=== PATIENT | male | born 1990 | race Caucasian/White ===

== ENCOUNTER 2024-09-29 21:55 | Emergency (ER) | payer SELFPAY ==
[2024-09-29 21:57] VITALS: BP 132/86
[2024-09-29 22:02] VITALS: BP 140/82
[2024-09-29] MEDS: DUONEB 9 ML INH (22:07)
[2024-09-29] MEDS: DUONEB 3 ML INH ×2 (22:36→23:45)
[2024-09-29] MEDS: DELTASONE 50 MG PO (22:36)
[2024-09-29 22:47] LABS: COVID-19 Antigen Negative (Negative)
--- NOTE | 2024-09-29 23:45 | EDRN ---
Dr. Patrick re-assessed patient and ordered another duo-neb to be done
--- NOTE | 2024-09-30 00:17 | ED.GENMED ---
History of Present Illness
General
Chief Complaint: Breathing Problem
Source: patient
Exam Limitations: none
Time Seen by Provider: 09/29/24 22:05
Nursing documentation reviewed up to this point in time: agreed with
History of Present Illness
History of Present Illness:
Note:
CHIEF COMPLAINT(S)
Shortness of breath and wheezing
HISTORY OF PRESENT ILLNESS
The patient is a 34-year-old male presenting with a chief complaint of shortness of breath and wheezing. He reports that the sensation of breathlessness began gradually, described as feeling 'tighter and tighter.' He initially experienced these
symptoms in the morning, with a similar episode occurring approximately two years ago. The patient mentioned an absence of recent fevers. He expressed that his shortness of breath has progressively worsened with age but denied recent use of
steroids, nebulizers, or having any increased temperature.
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 He also mentioned having a recent 'runny nose' and describing himself as 'pretty
bad,' likely relating to upper respiratory symptoms. The patient smokes cigarettes.
PHYSICAL EXAM
-General moderate respiratory distress, afebrile
- Skin: Multiple tattoos present, without cyanosis.
- Cardiovascular: Pulses are equal on all extremities; no edema observed.
- Respiratory: Wheezing noted upon presentation.
PROBLEM LIST
Acute:
- Shortness of breath
- Wheezing
PLAN
The plan includes administering breathing treatments with bronchodilators and starting the patient on steroids. A chest X-ray is indicated, and tests for influenza and COVID-19 will be conducted to evaluate potential viral infections.
DIFFERENTIAL DIAGNOSIS
The Differential Diagnosis includes, in no particular order and is not limited to:
1. Asthma exacerbation
2. Chronic obstructive pulmonary disease (COPD)
3. Allergic reaction
4. Respiratory infection (viral or bacterial)
5. Occupational lung disease
6. Cardiogenic pulmonary edema
7. Anxiety-related hyperventilation
8. Bronchitis
9. Pulmonary embolism
10. Pneumonia
CARE-UPDATE
09/29/24 - 23:32
The patients chest exam appears normal, but they continue to experience respiratory tightness and wheezing. The patient admits to a history of smoking and acknowledges the need to quit, having previously attempted abstinence for a brief period.
Current treatment includes multiple doses of nebulized medication, which temporarily improved symptoms, although the patient still feels respiratory tightness. Steroid treatment has been initiated but requires additional time for full efficacy. Plan
includes administering another nebulization treatment to further assess and alleviate the patients symptoms and potentially improve respiratory function before discharge. The patient is agreeable with this plan.
CARE-UPDATE
09/30/24 - 00:27
Patient reports improvement post-nebulizer treatments, with chest x-ray confirming normal findings. Repeat lung examination shows clearer lung sounds and improved air movement, with a reduction to faint wheezing. Initiating albuterol inhaler and a
5-day prednisone regimen. Patient advised to find a primary care physician and received smoking cessation estate planning counselor. Discharge precautions discussed.
Disposition:
DIAGNOSIS
- Asthma exacerbation (ICD-10: J45.901)
SUMMARY OF ENCOUNTER
The patient, a 34-year-old male, presented to the emergency department with shortness of breath and wheezing. The onset of these symptoms was gradual, with a sensation of chest tightness worsening over time. The patient works in construction with
frequent exposure to dust and has a significant smoking history. Initial examination showed moderate respiratory distress and wheezing. Management included administering bronchodilators and initiating steroid therapy, with follow-up chest X-ray and
testing for influenza and COVID-19 to rule out viral infections. The patient demonstrated improvement following nebulizer treatments and the chest X-ray indicated normal findings, confirming an asthma exacerbation diagnosis.
DISPOSITION
Discharge
REASSESSMENT
Post-nebulizer treatment, the patient reported improved breathing. A chest X-ray confirmed normal findings, and a repeat lung examination noted clearer lung sounds with diminished wheezing.
PLAN
The management plan includes the initiation of an albuterol inhaler and a 5-day course of prednisone. The patient was advised to identify a primary care physician for ongoing management and received guidance on smoking cessation.
INDEPENDENT INTERPRETATION OF TESTS
My independent interpretation of the chest x-ray shows no abnormalities, confirming the absence of infections or other acute respiratory issues.
PATIENT EDUCATION AND COUNSELING
The patient was counseled on the importance of smoking cessation, the management of asthma, and advised on discharge precautions.
FOLLOW-UP INSTRUCTIONS
The patient was instructed to follow up with a primary care physician for continued management of asthma and further smoking cessation support.
MEDICATION RECONCILIATION
- Albuterol inhaler prescribed.
- Prednisone prescribed for 5 days.
SMOKING CESSATION COUNSELING
The patient smokes cigarettes. I counseled them on cessation, emphasizing the health risks including cancer, lung disease, and heart disease. I encouraged the use of nicotine patches or gum and suggested discussing additional prescription options
with a PCP. A quit date was recommended to aid in cessation efforts.
MEDICAL DECISION MAKING
Number and Complexity of Problems Addressed: Acute asthma exacerbation with primary concerns of shortness of breath and wheezing. Occupational exposure and smoking history considered.
Data: Diagnosis supported by clinical presentation and chest X-ray, guided therapeutic interventions, and recommended a follow-up plan.
Risk: The patients social determinants, including occupational dust exposure and smoking, influenced management decisions. Discharge was deemed appropriate given symptom improvement and patient estate planning counselor on follow-up with primary care for ongoing care.
Phy Exam
Physical Exam
Physical Exam:
.
Course
Orders/Labs/Results
Orders:
Orders
09/29/24 22:02
Ipratropium/Albuterol Sulfate [Duoneb] 9 ml INH R NOW STA
09/29/24 22:12
Ipratropium/Albuterol Sulfate [Duoneb] 3 ml INH R NOW STA
Prednisone [Deltasone] 50 mg PO NOW STA
09/29/24 22:13
CR Chest - 2 Views Urgent
Comment:
Reason For Exam: short of breath, wheezing 2 days
09/29/24 22:20
COVID-19 Antigen Urgent
Source: Nasal Swab
Influenza A+B Rapid Molecular Urgent
DELMIS Source: Nasal Swab
Specimen Description:
09/29/24 23:36
Ipratropium/Albuterol Sulfate [Duoneb] 3 ml .ROUTE .STK-MED ONE
Ipratropium/Albuterol Sulfate [Duoneb] 3 ml INH R NOW STA
Vital Signs
Initial and Last Documented VS:
Initial Vital Signs
Temp Pulse Resp BP Pulse Ox
97.8 F 115 26 132/86 90
09/29/24 21:57 09/29/24 21:57 09/29/24 21:57 09/29/24 21:57 09/29/24 21:57
Last Documented Vital Signs
Temp Pulse Resp BP Pulse Ox
97.8 F 115 26 140/82 98
09/29/24 21:57 09/29/24 21:57 09/29/24 21:57 09/29/24 22:02 09/29/24 22:45
*Pulse Oximetry
Patient hypoxic: no (98)
*Critical Care Note
Total Time (30-74mins, 75-104mins- exclusive of procedures): Not Applicable
ED Attending Note
-
Portions of this chart may have been created with voice recognition software.� Occasional wrong word or��sound alike� substitutions may have occurred due to the inherent limitations of voice recognition software.
Discharge Plan
Departure
Patient Disposition: Home (Routine Discharge)
Date of Disposition: 09/30/24
Time of Disposition: 00:28
Patient with high blood pressure during this ER visit?: Yes
Condition: Good
Discharge Problem:
Asthma exacerbation
Instructions: Asthma, Adult (DC), BLOOD PRESSURE
Prescriptions:
New
albuterol sulfate [Ventolin HFA] 90 mcg/actuation HFA aerosol inhaler
2 puff inhalation Q6H PRN (Reason: shortness of breath or wheezing) Qty: 8.5 0RF
prednisone 50 mg tablet
50 mg PO DAILY Qty: 5 0RF
Referrals:
[facility] [Provider Group] - Call in 1-3 days for appt
NONE,* [Family Provider, Internal Medicine]
Interventions
Interventions:
*Risk Screen - Suicide Last Done: 09/29/24 21:57
*General Assessment Last Done: 09/29/24 22:07
*Neglect/Abuse Screening Last Done: 09/29/24 21:57
*ED- Fall Risk Assessment Last Done: 09/29/24 22:07
*ED COVID-19 Vaccine History Last Done: 09/29/24 22:07
ED- Cardiac Assessment Last Done: 09/29/24 22:30
ED- Pulmonary Assessment Last Done: 09/29/24 22:30
Discharge Date and Time
Print Language: YAKUT
== END 2024-09-30 01:06 | disposition home or self-care (01) ==
LOC: EMR 21:55
PROVIDERS: EMERGENCY PHYSICIAN Emergency Medicine
DX: J45.901 Unspecified asthma with (acute) exacerbation (principal); R03.0 Elevated blood-pressure reading, without diagnosis of hypertension; F17.210 Nicotine dependence, cigarettes, uncomplicated; Z11.52 Encounter for screening for COVID-19
CPT/HCPCS: 99284; 94640; 71046; 87502; 87811